=== PATIENT | male | born 1975 | race Caucasian/White ===

== ENCOUNTER → 2020-03-01 | Outpatient (CLI) | payer BC | END | disposition home or self-care (01) | LOC: COVID19 10:59 | PROVIDERS: ATTEND Family Medicine | DX: Z20.822 Contact with and (suspected) exposure to COVID-19 (principal) ==

== ENCOUNTER → 2020-03-09 | Outpatient (CLI) | payer BC | END | disposition home or self-care (01) | LOC: COVID19 11:03 | PROVIDERS: ATTEND Family Medicine | DX: Z20.822 Contact with and (suspected) exposure to COVID-19 (principal) ==